=== PATIENT | male | born 1960 | race Hispanic/Latino ===

== ENCOUNTER 2017-06-02 16:34 | Emergency (ER) | payer SELFPAY ==
[2017-06-02 16:46] VITALS: BP 145/97
--- NOTE | 2017-06-02 17:40 | XRay Report ---
FINAL REPORT EXAM: XR FINGER(S) 2+V LT HISTORY: Trauma/Pain/Swelling/#3 Finger TECHNIQUE: Left 3rd digit two views PRIORS: None. FINDINGS: No fracture is identified. The joint spaces are within normal limits. No focal bony lesion identified. No radiopaque foreign body seen. There is diffuse soft tissue swelling present. Is no soft tissue gas identified IMPRESSION: Soft tissue swelling No acute bony abnormality seen
[2017-06-02] MEDS ORDERED: AUGMENTIN 875 MG PO ONE (19:09)
[2017-06-02] MEDS ORDERED: NORCO 5/325 PO ONE (19:09)
[2017-06-02] MEDS ORDERED: UNASYN/NS 3 GM/100 ML 3 GM/100 ML BAG IV ONE (19:16)
--- NOTE | 2017-06-02 19:19 | Emergency Department Report ---
ED Animal Bite HPI - General Chief Complaint: Animal Bite Stated Complaint: DOG BITE, LEFT MIDDLE FINGER LACERATION Time Seen by Provider: 06/02/17 19:08 Source: patient Mode of arrival: Ambulatory Limitations: No Limitations - History of Present Illness Initial Comments: 57-year-old male past medical history arthritis, [place] presents with complaint of dog bite to left hand. Patient states that yesterday he was bitten by his mother's poodle at home. As per the patient dog has all of its vaccinations. Patient states that his last tetanus vaccine update was 2 years ago. Patient is complaining of swelling at distal left middle finger somewhat extending into the palm. Patient is awake alert and oriented 3 nontoxic-appearing. Denies any other injuries. MD Complaint: animal bite Onset/Timin -: days(s) Location: other (left distal middel finger) Left: Hand (left distal hand) Animal: dog Animal Control Notified: No Description: household pet Mechanism: bite Pain Description: sharp Severity scale (0 -10): 6 Associated Symptoms: erythema - Related Data Patient Tetanus UTD: Yes (2014) Previous Rx's Medication Instructions Recorded Last Taken Type HYDROcodone/APAP 5-325 [[place] 1 each PO Q6HR PRN #20 tablet 06/14/16 Unknown Rx 5/325] oxyCODONE [Roxicodone] 5 mg PO Q6HR PRN #15 tablet 07/03/16 Unknown Rx Acetaminophen/Codeine [Tylenol 1 tab PO Q6H PRN #9 tab 06/02/17 Unknown Rx /Codeine # 3 tab] Amoxicillin/K Clav Tab [Augmentin 1 tab PO Q12HR #14 tab 06/02/17 Unknown Rx 875 mg] Allergies Allergy/AdvReac Type Severity Reaction Status Date / Time ibuprofen [From Motrin] Allergy Hives Verified 05/08/16 23:33 ED Review of Systems ROS: Stated complaint: DOG BITE, LEFT MIDDLE FINGER LACERATION Other details as noted in HPI Constitutional: denies: chills, fever Eyes: denies: eye pain, eye discharge, vision change ENT: denies: ear pain, throat pain Respiratory: denies: cough, shortness of breath, wheezing Cardiovascular: denies: chest pain, palpitations Endocrine: no symptoms reported Gastrointestinal: denies: abdominal pain, nausea, diarrhea Genitourinary: denies: urgency, dysuria Musculoskeletal: as per HPI. denies: back pain, joint swelling, arthralgia Skin: denies: rash, lesions Neurological: denies: headache, weakness, paresthesias Psychiatric: denies: anxiety, depression Hematological/Lymphatic: denies: easy bleeding, easy bruising ED Past Medical Hx - Past Medical History Previous Medical History?: Yes Hx Heart Attack/AMI: Yes Hx Arthritis: Yes - Surgical History Past Surgical History?: Yes Additional Surgical History: finger surgery - Social History Smoking Status: Current Every Day Smoker Substance Use Type: Alcohol - Medications Home Medications: Home Medications Medication Instructions Recorded Confirmed Last Taken Type HYDROcodone/APAP 5-325 [[place] 1 each PO Q6HR PRN #20 tablet 06/14/16 Unknown Rx 5/325] oxyCODONE [Roxicodone] 5 mg PO Q6HR PRN #15 tablet 07/03/16 Unknown Rx Acetaminophen/Codeine [Tylenol 1 tab PO Q6H PRN #9 tab 06/02/17 Unknown Rx /Codeine # 3 tab] Amoxicillin/K Clav Tab [Augmentin 1 tab PO Q12HR #14 tab 06/02/17 Unknown Rx 875 mg] ED Physical Exam - General Limitations: No Limitations General appearance: alert, in no apparent distress - Head Head exam: Present: atraumatic, normocephalic - Eye Eye exam: Present: normal appearance, PERRL, EOMI - ENT ENT exam: Present: mucous membranes moist - Neck Neck exam: Present: normal inspection - Respiratory Respiratory exam: Present: normal lung sounds bilaterally. Absent: respiratory distress - Cardiovascular Cardiovascular Exam: Present: regular rate, normal rhythm. Absent: systolic murmur, diastolic murmur, rubs, gallop - GI/Abdominal GI/Abdominal exam: Present: soft, normal bowel sounds - Rectal Rectal exam: Present: deferred - Extremities Exam Extremities exam: Present: normal inspection - Expanded Upper Extremity Exam Left Shoulder Exam: Present: normal inspection, full ROM Upper Arm exam: Present: normal inspection, full ROM Elbow exam: Present: normal inspection, full ROM Forearm Wrist exam: Present: normal inspection, full ROM Hand Wrist exam: Present: full ROM (rom pip, dip, mcp fully intact), tenderness , swelling Hand L/R Front: 1 - Positive: other (erythema, cellulitis) Neuro motor exam: Present: wrist extension intact, thumb opposition intact, thumb IP flexion intact, thumb adduction intact, fingers 2-5 abduction intact Vascular: Present: vascular compromise (distal capillary refill less than 1 second) - Back Exam Back exam: Present: normal inspection - Neurological Exam Neurological exam: Present: alert, oriented X3, CN II-XII intact, normal gait - Psychiatric Psychiatric exam: Present: normal affect, normal mood - Skin Skin exam: Present: warm, dry, intact, normal color. Absent: rash ED Course Vital Signs 06/02/17 16:43 Temperature 99.0 F Pulse Rate 95 H Respiratory 20 Rate Blood Pressure 145/97 O2 Sat by Pulse 95 Oximetry Critical care attestation.: If time is entered above; I have spent that time in minutes in the direct care of this critically ill patient, excluding procedure time. Critical Care Time: A/P: Dog bite to hand, finger cellulitis, puncture wound 1-is discussed with Dr. Callaway who also examined the patient's hand 2-I explained to patient that the concern is that he can develop worsened hand cellulitis and/or infectious tenosynovitis and that the indication is to give him IV antibiotics and admit him and/or possibly transfer him to be evaluated by a orthopedic hand surgeon. Patient stated that he cannot be admitted because he has personal obligations that he must take care of tonight but does agree to a 24-48 hour wound check and states that he will try to make arrangements to return to the hospital as soon as possible for admission and IV antibiotics 3-I advised the patient to return to the ED [facility] for fevers chills nausea vomiting worsened cellulitis. Borders of cellulitis marked 4-patient given a dose of IV Unasyn ED and placed on 7 day course of Augmentin as per [email or web address]-to-[email or web address] recommendations.https://www.uptodate.com/contents/soft- bvpplm-udixuealsj-pea-as-crw-kbo-cat-bites?source=see_link&sectionName= Antibiotic%20prophylaxis&anchor=H8#H8 5- patient states that his tetanus vaccine was updated in 2014 and that the animal is owned by one of his family members and that he has proof that the animal has received all his vaccinations including rabies vaccinations no clinical indication at this time for rabies prophylaxis 6- I gave patient information for follow-up with hand surgery and advised him to follow up as soon as possible [email or web address] ED Disposition Clinical Impression: Cellulitis of finger of left hand, Left against medical advice Dog bite Qualifiers: Encounter type: initial encounter Qualified Code(s): W54.0XXA - Bitten by dog, initial encounter Puncture wound of left hand Qualifiers: Encounter type: initial encounter Foreign body presence: without foreign body Qualified Code(s): S61.432A - Puncture wound without foreign body of left hand, initial encounter Disposition: LEFT AGAINST MED ADVICE Is pt being admited?: No Does the pt Need Aspirin: No Condition: Stable Instructions: Animal Bite (ED), Puncture Wound (ED) Additional Instructions: [email or web address] Prescriptions: Acetaminophen/Codeine [Tylenol /Codeine # 3 tab] 1 tab PO Q6H PRN #9 tab PRN Reason: Pain Amoxicillin/K Clav Tab [Augmentin 875 mg] 1 tab PO Q12HR #14 tab Referrals: PRIMARY CARE, [Primary Care Provider] - 3-5 Days [facility] [Outside] - 3-5 Days [facility] [Provider Group] - 3-5 Days Forms: AMA Form Time of Disposition: 19:40
== END 2017-06-02 19:29 | disposition left against medical advice (07) ==
LOC: ED 16:34
DX: S61.432A Puncture wound without foreign body of left hand, initial encounter (principal); L03.012 Cellulitis of left finger; I25.2 Old myocardial infarction; M19.90 Unspecified osteoarthritis, unspecified site; F17.200 Nicotine dependence, unspecified, uncomplicated; Z88.6 Allergy status to analgesic agent; W54.0XXA Bitten by dog, initial encounter; Y93.89 Activity, other specified; Y92.89 Other specified places as the place of occurrence of the external cause; Y99.8 Other external cause status

== ENCOUNTER 2017-09-16 21:35 | Emergency (ER) | payer SELFPAY ==
[2017-09-16 23:44] VITALS: BP 124/81
[2017-09-17 00:28] LABS: Bilirubin,Urine NEG (Negative); Blood,Urine NEG (Negative); Color,Urine Yellow (Yellow); Mucus,Urine FEW /HPF; Nitrite,Urine NEG (Negative); Protein,Urine <15 mg/dL mg/dL (Negative); Urobilinogen,Urine < 2.0 mg/dL (<2.0)
[2017-09-17 00:29] LABS: RBC,Urine < 1.0 /HPF (0.0-6.0); WBC,Urine < 1.0 /HPF (0.0-6.0)
[2017-09-17 00:49] LABS: Basophils # (Auto) 0.1 K/mm3 (0.0-0.1); Basophils % (Auto) 1.2 % (0.0-1.8); Eosinophils # (Auto) 0.1 K/mm3 (0.0-0.4); Eosinophils % (Auto) 1.6 % (0.0-4.3); Hematocrit 44.8 % (35.5-45.6); Hemoglobin 15.3 gm/dl (11.8-15.2); Lymphocytes # (Auto) 2.9 K/mm3 (1.2-5.4); Lymphocytes % (Auto) 43.1 % (13.4-35.0); Mean Corpuscular HGB Conc 34 % (32-34); Mean Corpuscular Hemoglobin 35 pg (28-32); Mean Corpuscular Volume 101 fl (84-94); Monocytes # (Auto) 0.6 K/mm3 (0.0-0.8); Monocytes % (Auto) 8.6 % (0.0-7.3); Platelet Count 312 K/mm3 (140-440); Red Blood Count 4.43 M/mm3 (3.65-5.03); Red Cell Distribution Width 13.9 % (13.2-15.2)
--- NOTE | 2017-09-17 00:49 | Cat Scan Report ---
FINAL REPORT EXAM: CT HEAD/BRAIN WO CON HISTORY: head TECHNIQUE: CT was performed from the foramen magnum through the vertex in the axial plane without the use of intravenous contrast. PRIORS: None. FINDINGS: The hoyos/white matter attenuation pattern is normal. There is no mass lesion or mass effect. There are no abnormal extra-axial fluid collections. There is no evidence of acute intracranial hemorrhage or infarct. The ventricles are of normal size and configuration. The skull and orbits are unremarkable. The visualized paranasal sinuses are clear. IMPRESSION: Normal CT of the head.
[2017-09-17 00:55] LABS: BUN/Creatinine Ratio 13; Blood Urea Nitrogen 8 mg/dL (9-20); Calcium 8.5 mg/dL (8.4-10.2); Hemolysis Index 5
--- NOTE | 2017-09-17 01:00 | Cat Scan Report ---
FINAL REPORT EXAM: CT CERVICAL SPINE WO CON HISTORY: head TECHNIQUE: Spiral CT scanning of the cervical spine, with axial images and multiplanar reformations. PRIORS: None. FINDINGS: Multilevel degenerative disc disease and spondylosis. No acute compression deformity or gross malalignment of cervical vertebral bodies. No acute fracture identified. No acute, osseous central spinal canal encroachment. Paraspinal soft tissues grossly unremarkable. IMPRESSION: 1. No acute compression deformity or apparent fracture in the cervical spine. 2. Degenerative spondylosis.
[2017-09-17 01:36] LABS: Amphetamine Screen,Urine PRESUMPTIVE NEGATIVE; Benzodiazepines Screen,Urine PRESUMPTIVE NEGATIVE; Cocaine Screen,Urine PRESUMPTIVE NEGATIVE; Methadone Screen,Urine PRESUMPTIVE NEGATIVE; Opiate Screen,Urine PRESUMPTIVE NEGATIVE
[2017-09-17 01:59] LABS: Cannabinoid Screen,Urine PRESUMPTIVE POSITIVE
== END 2017-09-17 02:40 | disposition left against medical advice (07) ==
LOC: ED 21:35
DX: R51 Headache (principal); Z53.21 Procedure and treatment not carried out due to patient leaving prior to being seen by health care provider
CPT/HCPCS: 36415; 70450; 72125; 80048; 80307; 81001; 85025; G0480; 80320

== ENCOUNTER 2018-01-08 20:24 | Emergency (ER) | payer SELFPAY ==
[2018-01-08 20:53] VITALS: BP 124/83
[2018-01-08] MEDS ORDERED: ASPIRIN PO ONE (20:53)
[2018-01-08 21:19] LABS: Basophils # (Auto) 0.1 K/mm3 (0.0-0.1); Eosinophils # (Auto) 0.1 K/mm3 (0.0-0.4); Eosinophils % (Auto) 1.6 % (0.0-4.3); Hematocrit 46.9 % (35.5-45.6); Hemoglobin 16.2 gm/dl (11.8-15.2); Lymphocytes # (Auto) 2.9 K/mm3 (1.2-5.4); Lymphocytes % (Auto) 39.5 % (13.4-35.0); Mean Corpuscular HGB Conc 35 % (32-34); Mean Corpuscular Hemoglobin 35 pg (28-32); Mean Corpuscular Volume 102 fl (84-94); Monocytes # (Auto) 0.9 K/mm3 (0.0-0.8); Monocytes % (Auto) 12.1 % (0.0-7.3); Platelet Count 304 K/mm3 (140-440)
[2018-01-08 21:37] LABS: BUN/Creatinine Ratio 11; Blood Urea Nitrogen 8 mg/dL (9-20); Calcium 8.9 mg/dL (8.4-10.2); Hemolysis Index 12
[2018-01-08 21:40] LABS: Bilirubin,Urine NEG (Negative); Blood,Urine NEG (Negative); Color,Urine Straw (Yellow); Protein,Urine <15 mg/dL mg/dL (Negative); RBC,Urine < 1.0 /HPF (0.0-6.0); Urobilinogen,Urine < 2.0 mg/dL (<2.0)
[2018-01-08 21:46] LABS: Amphetamine Screen,Urine PRESUMPTIVE NEGATIVE; Benzodiazepines Screen,Urine PRESUMPTIVE NEGATIVE; Cannabinoid Screen,Urine PRESUMPTIVE NEGATIVE; Cocaine Screen,Urine PRESUMPTIVE NEGATIVE; Methadone Screen,Urine PRESUMPTIVE NEGATIVE; Opiate Screen,Urine PRESUMPTIVE NEGATIVE
[2018-01-08 21:50] LABS: WBC,Urine < 1.0 /HPF (0.0-6.0)
== END 2018-01-09 01:30 | disposition left against medical advice (07) ==
LOC: ED 20:24
DX: R07.89 Other chest pain (principal); Z53.21 Procedure and treatment not carried out due to patient leaving prior to being seen by health care provider
CPT/HCPCS: 36415; 80048; 80307; 81001; 84484; 85025; 93005; 93010; G0480; 80320

== ENCOUNTER 2018-04-01 23:23 | Emergency (ER) | payer SELFPAY ==
--- NOTE | 2018-04-02 00:31 | XRay Report ---
FINAL REPORT EXAM: XR HAND BILAT 2V HISTORY: tree limb fell and hurt his hand TECHNIQUE: AP and oblique views of the bilateral hand PRIORS: None. FINDINGS: Right hand: The bones are normally aligned and mineralized. There is no evidence of acute fracture. The soft tissues are unremarkable. There is subchondral sclerosis and osteophyte formation at the trapezium 1st metacarpal joint. There is absence of radial side of the 3rd distal phalangeal tuft, chronic in appearance. Left hand: The bones are normally aligned and mineralized. There is no evidence of acute fracture. The soft tissues are unremarkable. There is subchondral sclerosis and osteophyte formation at the trapezium 1st metacarpal joint. IMPRESSION: No evidence of acute fracture or subluxation. Old injury or erosive change of right distal phalangeal tuft Osteoarthrosis of the bilateral trapezium 1st metacarpal joints
--- NOTE | 2018-04-02 01:05 | XRay Report ---
FINAL REPORT EXAM: XR SHOULDER 2+V LT HISTORY: Tree limb fell back and hit his shoulder TECHNIQUE: 3 views of the left shoulder PRIORS: None. FINDINGS: The glenohumeral and acromioclavicular joints are normally aligned. There is osteophyte formation of the glenohumeral joint and acromioclavicular joint. The bones are normally mineralized. The soft tissues are unremarkable. IMPRESSION: No evidence of acute injury Osteoarthrosis of the acromioclavicular and glenohumeral joints.
--- NOTE | 2018-04-02 04:13 | Emergency Department Report ---
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 denies: back pain Skin: other (abrasion bilat dorsal hands forearms ). denies: rash, lesions Neurological: denies: headache, weakness, paresthesias Psychiatric: denies: anxiety, depression Hematological/Lymphatic: denies: easy bleeding, easy bruising ED Past Medical Hx - Past Medical History Previous Medical History?: Yes Hx Heart Attack/AMI: Yes (in his 30's) Hx Arthritis: Yes - Surgical History Past Surgical History?: Yes Additional Surgical History: finger surgery - Social History Smoking Status: Current Every Day Smoker Substance Use Type: Alcohol, Marijuana - Medications Home Medications: Home Medications Medication Instructions Recorded Confirmed Last Taken Type HYDROcodone/APAP 5-325 [[place] 1 each PO Q6HR PRN #20 tablet 06/14/16 Unknown Rx 5/325] oxyCODONE [Roxicodone] 5 mg PO Q6HR PRN #15 tablet 07/03/16 Unknown Rx Acetaminophen/Codeine [Tylenol 1 tab PO Q6H PRN #9 tab 06/02/17 Unknown Rx /Codeine # 3 tab] Amoxicillin/K Clav Tab [Augmentin 1 tab PO Q12HR #14 tab 06/02/17 Unknown Rx 875 mg] Diclofenac EC [Voltaren] 25 mg PO Q8HR #60 tablet 04/02/18 Unknown Rx Neomycn/Bacitrc/Polymyx/Pramox 1 applic TP BID 10 Days #1 tube 04/02/18 Unknown Rx [Neosporin + Pain Relief Oint] Upper Extremity Exam - Exam General: Vital signs noted. No distress. Alert and acting appropriately. Head and Torso: No HEENT Abnormality, No Neck Tenderness, No Chest/Lungs Abnormality, No Abdominal Tenderness, No Back Tenderness Shoulder Exam: Yes Shoulder Tenderness (left lateral shoulder tenderness ), Yes AC Joint Tenderness, No Clavicle Tenderness, No Normal Range of Motion in Shoulder (chronic arthritis per patient), No Shoulder Deformity Arm Exam: No Arm/Humerus Tenderness, No Arm Deformity Elbow: Yes Normal Range of Motion in Elbow, No Elbow Tenderness, No Elbow Deformity Forearm: No Forearm Tenderness, No Forearm Deformity, No Pain with Pronation, No Pain with Supination Wrist: Yes Normal ROM in Wrist, No Wrist Tenderness, No Wrist Deformity, No Snuffbox Tenderness, No Pain with Axial Thumb Compression Hand: Yes Hand Tenderness, Yes Digit Tenderness, Yes Normal ROM in Digit(s), No Hand Deformity, No Digit(s) Deformity, No Tendon Dysfunction CMS Exam: Yes Broken Skin (abrasions ), Yes Normal Distal Pulses, Yes Normal Capillary Refill, Yes Normal Distal Sensation ED Course Vital Signs 04/01/18 23:21 Temperature 97.7 F Pulse Rate 91 H Respiratory 18 Rate Blood Pressure 108/83 O2 Sat by Pulse 95 Oximetry ED Medical Decision Making - Radiology Data Radiology results: report reviewed, image reviewed chronic osteoarthritis no acute fracture or soft tissue abnormalities - Medical Decision Making X-rays negative for fracture confirm chronic osteoarthritis as stated by patient patient notes chronic joint swelling again these are chronic and no acute fractures no acute abnormalities minor abrasion superficial L [place] with copious soap and water all bleeding is controlled range of motion in hands and left shoulder to baseline per patient radial pulses +2 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 there is negative snuffbox negative axial loading of findings finger flexion and extension to direct opposition intact bilaterally left shoulder no ecchymosis no swelling no deformity open can shoulder and lap intact plan NSAIDs when necessary pain patient will follow-up [facility] in 2-3 days with PCP affiliation patient verbalizes understanding and agreement with same will be DC'd to home in stable condition at this time Critical care attestation.: If time is entered above; I have spent that time in minutes in the direct care of this critically ill patient, excluding procedure time. ED Disposition Clinical Impression: Abrasion, Multiple contusions Osteoarthritis Qualifiers: Osteoarthritis location: shoulder Osteoarthritis type: unspecified Laterality: unspecified laterality Qualified Code(s): M19.019 - Primary osteoarthritis, unspecified shoulder Disposition: DC- TO HOME OR SELFCARE Is pt being admited?: No Does the pt Need Aspirin: No Condition: Good Instructions: Abrasion (ED), Contusion in Adults (ED) Prescriptions: Diclofenac EC [Voltaren] 25 mg PO Q8HR #60 tablet Neomycn/Bacitrc/Polymyx/Pramox [Neosporin + Pain Relief Oint] 1 applic TP BID 10 Days #1 tube Forms: Work/School Release Form(ED) Time of Disposition: 04:28
[2018-04-02 05:51] VITALS: BP 110/80
== END 2018-04-02 04:30 | disposition home or self-care (01) ==
LOC: ED 23:23
DX: S60.222A Contusion of left hand, initial encounter (principal); S60.221A Contusion of right hand, initial encounter; S40.012A Contusion of left shoulder, initial encounter; M19.012 Primary osteoarthritis, left shoulder; I25.2 Old myocardial infarction; F17.200 Nicotine dependence, unspecified, uncomplicated; F12.10 Cannabis abuse, uncomplicated; Z88.6 Allergy status to analgesic agent; W22.8XXA Striking against or struck by other objects, initial encounter; Y93.89 Activity, other specified; Y92.89 Other specified places as the place of occurrence of the external cause; Y99.8 Other external cause status
CPT/HCPCS: 99283

== ENCOUNTER 2022-03-29 22:50 | Emergency (ER) | payer SELFPAY ==
[2022-03-29 22:57] VITALS: BP 129/86
[2022-03-30 06:23] LABS: Basophils % (Auto) 0.6 % (0.0-1.8); Eosinophils # (Auto) 0.1 K/mm3 (0.0-0.4); Eosinophils % (Auto) 1.2 % (0.0-4.3); Hematocrit 46.9 % (35.5-45.6); Hemoglobin 15.7 gm/dl (11.8-15.2); Lymphocytes # (Auto) 2.3 K/mm3 (1.2-5.4); Lymphocytes % (Auto) 41.8 % (13.4-35.0); Mean Corpuscular HGB Conc 33 % (32-34); Mean Corpuscular Volume 107 fl (84-94); Monocytes # (Auto) 0.5 K/mm3 (0.0-0.8); Platelet Count 257 K/mm3 (140-440); Red Cell Distribution Width 13.7 % (13.2-15.2)
[2022-03-30 06:38] LABS: Alanine Aminotransferase 16 units/L (7-56); BUN/Creatinine Ratio 7; Blood Urea Nitrogen 5 mg/dL (9-20); Calcium 8.4 mg/dL (8.4-10.2); Hemolysis Index 22
== END 2022-03-30 11:26 | disposition left against medical advice (07) ==
LOC: ED 22:50
DX: K46.9 Unspecified abdominal hernia without obstruction or gangrene (principal); Z53.21 Procedure and treatment not carried out due to patient leaving prior to being seen by health care provider
CPT/HCPCS: 36415; 80053; 83690; 85025

== ENCOUNTER 2022-04-18 15:31 | Emergency (ER) | payer SELFPAY ==
[2022-04-18 15:38] VITALS: BP 129/69
--- NOTE | 2022-04-18 16:47 | XRay Report ---
CHEST 2 VIEWS INDICATION: CHEST PAIN. COMPARISON: 05/08/2016. FINDINGS: Support devices: None. Heart: Within normal limits. Lungs/Pleura: No acute air space or interstitial disease. Underlying COPD remains. No significant ple ural effusion. IMPRESSION: No acute findings. Signer Name: Ruddy Parker MD Signed: 04/18/2022 4:43 PM Workstation Name: [id number]
[2022-04-18 17:21] LABS: Basophils # (Auto) 0.1 K/mm3 (0.0-0.1); Basophils % (Auto) 1.3 % (0.0-1.8); Eosinophils # (Auto) 0.1 K/mm3 (0.0-0.4); Eosinophils % (Auto) 0.8 % (0.0-4.3); Hematocrit 46.7 % (35.5-45.6); Lymphocytes # (Auto) 2.8 K/mm3 (1.2-5.4); Lymphocytes % (Auto) 37.7 % (13.4-35.0); Mean Corpuscular HGB Conc 34 % (32-34); Mean Corpuscular Volume 105 fl (84-94); Monocytes # (Auto) 0.7 K/mm3 (0.0-0.8); Monocytes % (Auto) 9.5 % (0.0-7.3); Platelet Count 255 K/mm3 (140-440); Red Blood Count 4.46 M/mm3 (3.65-5.03); Red Cell Distribution Width 13.8 % (13.2-15.2)
[2022-04-18 17:36] LABS: Alanine Aminotransferase 26 units/L (7-56); Blood Urea Nitrogen 7 mg/dL (9-20); Calcium 8.6 mg/dL (8.4-10.2); Hemolysis Index 66
[2022-04-18 17:52] LABS: BUN/Creatinine Ratio 10
--- NOTE | 2022-04-19 10:04 | Electrocardiograph Report ---
[facility] Test Date: 2022-04-18 Test Time: 17:28:20 Pat Name: ARELY DICKERSON Department: Room: Gender: M [employer] Founder: YENI : 1960 Requested By: ED DOC Order Number: [id number] Reading MD: Eddie Martinez Measurements Intervals Jessie Rate: 80 P: 84 MS: 174 QRS: 42 QRSD: 121 T: 269 QT: 373 QTc: 431 Interpretive Statements Sinus rhythm nonspecific st-t No previous ECG available for comparison Electronically Signed On 04-19-2022 10:04:04 EDT by Eddie Martinez
== END 2022-04-19 08:42 | disposition left against medical advice (07) ==
LOC: ED 15:31
DX: R07.89 Other chest pain (principal); Z53.21 Procedure and treatment not carried out due to patient leaving prior to being seen by health care provider
CPT/HCPCS: 36415; 71046; 80053; 84484; 85025; 93005